=== PATIENT | female | born 1990 | race Caucasian/White ===

== ENCOUNTER 2016-05-08 10:10 | Emergency (ER) | payer MEDICAID ==
[~2016-05-08] VITALS: Ht 154.9 cm; Wt 63.5 kg
[2016-05-08 10:46] VITALS: BP 101/65
[2016-05-08] MEDS ORDERED: MOTRIN600 MG PO (10:46)
--- NOTE | 2016-05-08 11:10 | NUR ---
Patient ambulated to bed 08.
--- NOTE | 2016-05-08 11:13 | NUR ---
Dr. Browning evaluating patient at bedside.
--- NOTE | 2016-05-08 11:17 | NUR ---
PATIENT PRESENTS TO ED WITH COUGHING /SORE THROAT X3 DAYS. HX BRONCHITIS, ASTHMA. DENIES N/V/D; SKIN IS PINK/WARM/DRY; AAOX4 WITH EVEN AND STEADY GAIT; LUNGS CLEAR BL; HR EVEN AND REGULAR; PT DENIES ANY FEVER, CP AT THIS TIME; PATIENT STATES PAIN OF 5/10 AT THIS TIME; VSS; PATIENT POSITIONED FOR COMFORT; HOB ELEVATED; BEDRAILS UP X2; BED DOWN. ER MD MADE AWARE OF PT STATUS.
[2016-05-08 11:20] VITALS: BP 101/65
--- NOTE | 2016-05-08 11:20 | NUR ---
Patient discharged with v/s stable. Written and verbal after care instructions given and explained. Patient alert, oriented and verbalized understanding of instructions. Ambulatory with steady gait. All questions addressed prior to discharge. ID band removed. Patient advised to follow up with PMD. Rx of KEFLEX, PROMETHAZINE given. Patient educated on indication of medication including possible reaction and side effects. Opportunity to ask questions provided and answered.
== END 2016-05-08 11:20 | disposition home or self-care (01) ==
LOC: MED 10:10
DX: J06.9 Acute upper respiratory infection, unspecified (principal); J45.909 Unspecified asthma, uncomplicated

== ENCOUNTER 2016-12-27 09:08 | Emergency (ER) | payer SELFPAY ==
[~2016-12-27] VITALS: Ht 154.9 cm; Wt 50.8 kg
[~2016-12-27 09:08] MED LIST: MOTRIN600 MG PO
[2016-12-27 09:20] VITALS: BP 157/76
--- NOTE | 2016-12-27 09:28 | NUR ---
Patient ambulated to bed 05.
--- NOTE | 2016-12-27 09:31 | NUR ---
26F BIB MOTHER C/O MID-ABDOMINAL CRAMPING, NON-RADIATING, 5/10 X YESTERDAY; ABDOMEN SOFT, NON-TENDER, ACTIVE BOWEL SOUNDS X 4 QUADRANTS; PT STATES NO N/V/D AT THIS TIME; PT C/O VAGINAL BLEEDING X YESTERDAY WITH CLOTTS; PT STATES USING 2 TAMPONS/DAY AT THIS TIME; PT AA&OX4, PERRLA, BL LUNG SOUNDS CLEAR, RR EVEN/UNLABORED, SKIN IS WARM/DRY/INTACT AT THIS TIME; STEADY GAIT; PT RESTING IN BED WITH HOB ELEVATED AND IN LOWEST POSITION; POSITIONED FOR COMFORT; ER MD MADE AWARE OF STATUS. WILL CONTINUE TO MONITOR.
--- NOTE | 2016-12-27 09:32 | NUR ---
Dr. Browning evaluating patient at bedside.
--- NOTE | 2016-12-27 09:51 | NUR ---
US AT BEDSIDE.
[2016-12-27 11:15] VITALS: BP 106/64
--- NOTE | 2016-12-27 11:15 | NUR ---
Patient discharged with v/s stable. Written and verbal after care instructions given and explained. Patient alert, oriented and verbalized understanding of instructions. Ambulatory with steady gait. All questions addressed prior to discharge. ID band removed. Patient advised to follow up with PMD. Rx of TRAMADOL HYDROCHLORIDE 50MG TAB given. Patient educated on indication of medication including possible reaction and side effects. Opportunity to ask questions provided and answered.
== END 2016-12-27 11:15 | disposition home or self-care (01) ==
LOC: MED 09:08
DX: N93.9 Abnormal uterine and vaginal bleeding, unspecified (principal)
CPT/HCPCS: 36415; 76830; 81001; 81025; 85025; 99285; Q0092

== ENCOUNTER 2017-09-30 11:10 | Emergency (ER) | payer SELFPAY ==
[~2017-09-30] VITALS: Ht 157.5 cm; Wt 45.4 kg
[~2017-09-30 11:10] MED LIST changes: +IBUP-2213 PO; -MOTRIN600 MG PO
[2017-09-30 11:22] VITALS: BP 110/69
--- NOTE | 2017-09-30 12:25 | NUR ---
PT AMBULATES TO BED 5
--- NOTE | 2017-09-30 12:35 | NUR ---
PATIENT PRESENTS TO ED WITH COMPLAINTS OF N/V/D X 1 DAY. PATIENT STATES WHEN SHE STANDS UP IT GETS WORSE. AAOX4 WITH EVEN AND STEADY GAIT; LUNGS CLEAR BL; HR EVEN AND REGULAR; PT DENIES ANY FEVER, CP, SOB, OR COUGH AT THIS TIME; PATIENT STATES PAIN OF 9/10 AT THIS TIME; VSS; PATIENT POSITIONED FOR COMFORT; HOB ELEVATED; BEDRAILS UP X1; BED DOWN. ER MD MADE AWARE OF PT STATUS.
[2017-09-30] MEDS ORDERED: NACL 0.9% 1,000 ML IV SCH (14:05)
[2017-09-30] MEDS ORDERED: ONDANSETRON 4 MG/2 ML VIAL IVP ONE (14:05)
--- NOTE | 2017-09-30 14:30 | NUR ---
Patient appears to be resting comfortably in bed. Vital Signs within normal limits. Respirations even and unlabored. PATIENT NOT SEEN YET BY MD.
[2017-09-30 14:51] LABS: BASOPHILS % (AUTO) 0.3 % (0.0-2.0); EOSINOPHILS % (AUTO) 0.4 % (0.0-4.0); HEMATOCRIT 43.7 % (36-48); HEMOGLOBIN 14.4 g/dL (12.0-16.0); LYMPHOCYTES # (AUTO) 1.1 K/uL (2.5-16.5); MEAN CORPUSCULAR HEMOGLOBIN 33 pg (27-31); MEAN CORPUSCULAR HGB CONC 33 g/dL (33-37); MEAN CORPUSCULAR VOLUME 98.7 fL (80-94); MONOCYTES # (AUTO) 0.3 K/uL (0.8-1.0); MONOCYTES % (AUTO) 4.5 % (1.7-9.3); NEUTROPHILS # (AUTO) 6.1 K/uL (1.8-7.7); NEUTROPHILS % (AUTO) 80.8 % (42.2-75.2); PLATELET COUNT (AUTO) 206 K/uL (140-450); RED BLOOD CELL COUNT(AUTO) 4.43 MIL/uL (4.20-5.40); WHITE BLOOD COUNT (AUTO) 7.5 K/uL (4.8-10.8)
[2017-09-30 14:56] LABS: BILIRUBIN,URINE NEGATIVE (NEGATIVE); BLOOD, URINE 1+ (NEGATIVE); COLOR,URINE YELLOW (YELLOW); LEUKOCYTE ESTERASE ,URINE NEGATIVE (NEGATIVE); NITRITE, URINE NEGATIVE (NEGATIVE); UGLUCOSE NEGATIVE (NEGATIVE)
[2017-09-30 14:57] LABS: APPEARANCE,URINE HAZY (CLEAR)
[2017-09-30 15:00] LABS: ANION GAP 10.7 (8-16); CARBON DIOXIDE 29.1 mmol/L (21-32); CREATININE 0.7 mg/dL (0.6-1.3); POTASSIUM 3.8 mmol/L (3.5-5.1)
[2017-09-30 15:08] LABS: TOTAL BILIRUBIN 1.1 mg/dL (0.0-1.0)
[2017-09-30 15:14] LABS: RBC,URINE 3-10 (FEW) /HPF (0-5); WBC,URINE 0-5 (RARE) /HPF (0-5)
[2017-09-30] MEDS ORDERED: FAMOTIDINE 20 MG/2 ML VIAL IV SCH (15:50)
--- NOTE | 2017-09-30 16:30 | NUR ---
Patient appears to be resting comfortably in bed. Vital Signs within normal limits. Respirations even and unlabored.
[2017-09-30 17:30] VITALS: BP 145/90
--- NOTE | 2017-09-30 17:30 | NUR ---
Patient discharged with v/s stable. Written and verbal after care instructions given and explained. Patient alert, oriented and verbalized understanding of instructions. Ambulatory with steady gait. All questions addressed prior to discharge. ID band removed. Patient advised to follow up with PMD. Rx of ROBITUSSIN, ZOFRAN, PEPCID given. Patient educated on indication of medication including possible reaction and side effects. Opportunity to ask questions provided and answered.
== END 2017-09-30 17:30 | disposition home or self-care (01) ==
LOC: MED 11:10
DX: T62.8X1A Toxic effect of other specified noxious substances eaten as food, accidental (unintentional), initial encounter (principal); J45.909 Unspecified asthma, uncomplicated; Y92.89 Other specified places as the place of occurrence of the external cause
CPT/HCPCS: 36415; 80053; 81001; 81025; 83690; 84703; 85025; 96361; 96374; 99284; J2405; J7030

== ENCOUNTER 2020-02-24 17:29 | Emergency (ER) | payer MEDICAID ==
[~2020-02-24] VITALS: Ht 154.9 cm; Wt 49.9 kg
[2020-02-24 18:21] VITALS: BP 110/59
--- NOTE | 2020-02-24 18:43 | NUR ---
C/O COUGH, SORE THROAT, WYATT 5/10 X 3 DAYS. PT HAD COVID TESTED 1 MONTH AGO: NEGATIVE. MED HX: ASTHMA
--- NOTE | 2020-02-24 19:00 | NUR ---
COVID SWAB DONE.
--- NOTE | 2020-02-24 19:21 | NUR ---
Patient discharged with v/s stable. Written and verbal after care instructions given and explained. Patient alert, oriented and verbalized understanding of instructions. Ambulatory with steady gait. All questions addressed prior to discharge. ID band removed. Patient advised to follow up with PMD. Rx of IBUPROFEN, PROMETHAZINE& LORATADINE given. Patient educated on indication of medication including possible reaction and side effects. Opportunity to ask questions provided and answered.
[2020-02-24 19:22] VITALS: BP 110/59
== END 2020-02-24 19:21 | disposition home or self-care (01) ==
LOC: MED 17:29
DX: B34.9 Viral infection, unspecified (principal); J45.909 Unspecified asthma, uncomplicated; Z79.899 Other long term (current) drug therapy; Z20.828 Contact with and (suspected) exposure to other viral communicable diseases
CPT/HCPCS: 99283; U0003

== ENCOUNTER 2020-07-12 11:36 | Emergency (ER) | payer MEDICAID ==
[~2020-07-12] VITALS: Ht 154.9 cm; Wt 49.9 kg
[2020-07-12 11:49] VITALS: BP 105/60
[2020-07-12] MEDS ORDERED: IPRATROPIUM 0.02% 0.5 MG/2.5 ML NEBU INH ONE (12:05)
[2020-07-12] MEDS ORDERED: ALBUTEROL 0.083% 2.5 MG/3 ML NEBU INH ONE (12:05)
[2020-07-12] MEDS ORDERED: predniSONE 20 MG TAB PO ONE (12:05)
[2020-07-12] MEDS ORDERED: PRED20TA5 PO (12:58)
[2020-07-12] MEDS ORDERED: ALBU0.0912 IH (12:58)
[2020-07-12 13:12] VITALS: BP 105/60
== END 2020-07-12 13:11 | disposition home or self-care (01) ==
LOC: MED 11:36
DX: B34.9 Viral infection, unspecified (principal); Z20.822 Contact with and (suspected) exposure to COVID-19; J45.909 Unspecified asthma, uncomplicated; Z79.899 Other long term (current) drug therapy; Z98.890 Other specified postprocedural states
CPT/HCPCS: 94640; 99283; J7512; J7613; J7644; U0003

== ENCOUNTER 2020-11-19 13:17 | Emergency (ER) | payer MEDICAID, OTHER ==
[~2020-11-19] VITALS: Ht 157.5 cm; Wt 47.6 kg
[~2020-11-19 13:17] MED LIST changes: +ALBU0.0912 IH; +PRED20TA5 PO
[2020-11-19 13:22] VITALS: BP 101/77
--- NOTE | 2020-11-19 13:35 | NUR ---
Pt bib self c/o 30 yo f c/o headache x 1 week, weakness and loss of appetite x 2 days. as per pt, she had anemia and was taking iron supplements but stopped taking these 3 months ago. took ibuprofen last night. PT DENIES N/V/D; SKIN IS INTACT, Pale/cool/DRY; AAOX4, PERRL, WITH EVEN AND STEADY GAIT; LUNGS CLEAR BL, BREATHING UNLABORED; HR EVEN AND REGULAR, BL PERIPHERAL PULSES PRESENT; BS ACTIVE X4, NO TENDERNESS TO PALPATION. PT DENIES ANY FEVER, CP, SOB, OR COUGH AT THIS TIME; PT STATES 0/10 PAIN AT THIS TIME; VSS; PATIENT POSITIONED FOR COMFORT; HOB ELEVATED; BEDRAILS UP X2; BED DOWN.
--- NOTE | 2020-11-19 13:36 | NUR ---
UA DONE, HCG NEG. PT AWITING ER MD BLAKELY
[2020-11-19 13:50] LABS: BASOPHILS # (AUTO) 0.1 K/uL (0.00-0.22); BASOPHILS % (AUTO) 0.9 % (0.0-2.0); EOSINOPHILS # (AUTO) 0.2 K/uL (0-0.4); EOSINOPHILS % (AUTO) 2.3 % (0.0-4.0); HEMATOCRIT 40.6 % (36-48); HEMOGLOBIN 13.7 g/dL (12.0-16.0); LYMPHOCYTES # (AUTO) 2.5 K/uL (2.5-16.5); LYMPHOCYTES % (AUTO) 34.6 % (20.5-51.1); MEAN CORPUSCULAR HEMOGLOBIN 34 pg (27-31); MEAN CORPUSCULAR HGB CONC 34 g/dL (33-37); MEAN CORPUSCULAR VOLUME 100.2 fL (80-94); MONOCYTES # (AUTO) 0.3 K/uL (0.8-1.0); MONOCYTES % (AUTO) 4.6 % (1.7-9.3); NEUTROPHILS # (AUTO) 4.1 K/uL (1.8-7.7); NEUTROPHILS % (AUTO) 57.6 % (42.2-75.2); PLATELET COUNT (AUTO) 219 K/uL (140-450); RED BLOOD CELL COUNT(AUTO) 4.05 MIL/uL (4.20-5.40); RED CELL DISTRIBUTION WIDTH 13.5 % (11.6-13.7); WHITE BLOOD COUNT (AUTO) 7.1 K/uL (4.8-10.8)
[2020-11-19 13:54] LABS: ANION GAP 9.6 (8-16); CARBON DIOXIDE 29.4 mmol/L (21-32); CREATININE 0.7 mg/dL (0.6-1.3)
[2020-11-19] MEDS: KETOROLAC 60 MG/2 ML VIAL IM ONE (13:56)
--- NOTE | 2020-11-19 13:57 | NUR ---
IM MEDS GIVEN-NADR AT THIS TIME
--- NOTE | 2020-11-19 14:06 | NUR ---
pt provided with warm blanket
--- NOTE | 2020-11-19 14:19 | NUR ---
er at bedside
[2020-11-19] MEDS ORDERED: IBUP-2213 PO (14:32)
[2020-11-19] MEDS ORDERED: ACET-8386 PO (14:32)
[2020-11-19 14:39] VITALS: BP 101/77
--- NOTE | 2020-11-19 14:39 | NUR ---
Patient discharged with v/s stable. Written and verbal after care instructions about general headache without cause and weakness given and explained. Patient alert, oriented and verbalized understanding of instructions. Ambulatory with steady gait. All questions addressed prior to discharge. ID band removed. Patient advised to follow up with PMD. Rx of hydrocodon-acetaminophen and ibuprofen given. Patient educated on indication of medication including possible reaction and side effects. Opportunity to ask questions provided and answered.
== END 2020-11-19 14:39 | disposition home or self-care (01) ==
LOC: MED 13:17
DX: R51.9 Headache, unspecified (principal); R42 Dizziness and giddiness; J45.909 Unspecified asthma, uncomplicated
CPT/HCPCS: 36415; 80048; 81002; 81025; 85025; 96372; 99283; J1885

== ENCOUNTER 2021-01-24 12:35 | Emergency (ER) | payer OTHER ==
[~2021-01-24] VITALS: Ht 188 cm; Wt 49.9 kg
[~2021-01-24 12:35] MED LIST changes: +ACET-8386 PO
[2021-01-24 12:43] VITALS: BP 100/61
--- NOTE | 2021-01-24 12:50 | NUR ---
PT AMB TO BED 10.
--- NOTE | 2021-01-24 13:02 | NUR ---
PER ERMD 12 LEAD WAS DONE ON PT AND CAME BACK NSR AT 68 HR.
--- NOTE | 2021-01-24 13:11 | NUR ---
30/F BIB SELF WITH C/O "PRESSURE" LIKE 6/10 CHEST PAIN FOR ONE MONTH. PATIENT DENIES ANY RECENT INJURY OR TRAUMA, STATES CHEST IS TENDER TO TOUCH. REPORTS TAKING IBUPROFEN AT HOME WITH NO RELIEF, MAIRA SOB, FEVER, CHILLS, N/V/D.
--- NOTE | 2021-01-24 13:13 | NUR ---
PATIENT TAKEN TO XRAY BY WHEEL CHAIR.
--- NOTE | 2021-01-24 13:17 | NUR ---
PATIENT RETURNED FROM XRAY
[2021-01-24] MEDS ORDERED: IBUP-2213 PO (13:52)
[2021-01-24] MEDS: KETOROLAC 30 MG/ML VIAL IM ONE (14:02)
[2021-01-24 14:21] VITALS: BP 111/62
--- NOTE | 2021-01-24 14:26 | NUR ---
Patient discharged with v/s stable. Written and verbal after care instructions given and explained. Patient alert, oriented and verbalized understanding of instructions. Ambulatory with steady gait. All questions addressed prior to discharge. ID band removed. Patient advised to follow up with PMD. Rx of IBU given. Patient educated on indication of medication including possible reaction and side effects. Opportunity to ask questions provided and answered.
== END 2021-01-24 14:26 | disposition home or self-care (01) ==
LOC: MED 12:35
DX: R07.89 Other chest pain (principal); J45.909 Unspecified asthma, uncomplicated; Z79.899 Other long term (current) drug therapy; Z79.1 Long term (current) use of non-steroidal anti-inflammatories (NSAID); Z79.891 Long term (current) use of opiate analgesic; Z79.51 Long term (current) use of inhaled steroids
CPT/HCPCS: 71046; 93005; 96372; 99283; J1885

== ENCOUNTER 2021-02-12 13:45 | Emergency (ER) | payer OTHER ==
[~2021-02-12] VITALS: Ht 157.5 cm; Wt 49.9 kg
[2021-02-12 13:50] VITALS: BP 114/70
[2021-02-12 15:25] LABS: APPEARANCE,URINE CLEAR (CLEAR); BILIRUBIN,URINE NEGATIVE (NEGATIVE); BLOOD, URINE 1+ (NEGATIVE); COLOR,URINE YELLOW (YELLOW); LEUKOCYTE ESTERASE ,URINE NEGATIVE (NEGATIVE); NITRITE, URINE NEGATIVE (NEGATIVE); UGLUCOSE NEGATIVE (NEGATIVE)
[2021-02-12 15:29] LABS: RBC,URINE 11-20 (MOD) /HPF (0-5); WBC,URINE 0-5 /HPF (0-5)
[2021-02-12] MEDS ORDERED: KETOROLAC 30 MG/ML VIAL IM ONE (15:45)
[2021-02-12] MEDS ORDERED: DOXYCYCLINE 100 MG CAP PO STA (15:57)
[2021-02-12] MEDS ORDERED: metroNIDAZOLE 500 MG TAB PO ONE (16:00)
[2021-02-12] MEDS ORDERED: cefTRIAXone 500 MG VIAL IM ONE (16:00)
[2021-02-12] MEDS ORDERED: DOXY-690 PO (16:24)
[2021-02-12] MEDS ORDERED: metroNIDAZOLE 500 MG TAB ONE (16:50)
[2021-02-12] MEDS ORDERED: KETOROLAC 30 MG/ML VIAL ONE (16:51)
[2021-02-12] MEDS ORDERED: cefTRIAXone 500 MG in LIDOCAINE MPF 1% 1 ML IM ONE (16:55)
[2021-02-12] MEDS ORDERED: cefTRIAXone 500 MG VIAL ONE (17:00)
[2021-02-12] MEDS ORDERED: LIDOCAINE MPF 1% 5 ML ONE (17:00)
[2021-02-12 17:28] VITALS: BP 117/69
== END 2021-02-12 17:28 | disposition home or self-care (01) ==
LOC: MED 13:45
DX: R10.2 Pelvic and perineal pain (principal); J45.909 Unspecified asthma, uncomplicated; F17.210 Nicotine dependence, cigarettes, uncomplicated; Z79.2 Long term (current) use of antibiotics; Z79.1 Long term (current) use of non-steroidal anti-inflammatories (NSAID); Z79.891 Long term (current) use of opiate analgesic; Z79.899 Other long term (current) drug therapy; Z79.51 Long term (current) use of inhaled steroids
CPT/HCPCS: 81001; 81025; 87110; 87210; 87299; 96372; 99284; J0696; J1885; J2001

== ENCOUNTER 2021-03-20 00:52 | Emergency (ER) | payer OTHER ==
[~2021-03-20] VITALS: Ht 157.5 cm; Wt 49.9 kg
[~2021-03-20 00:52] MED LIST changes: +DOXY-690 PO
[2021-03-20 01:35] VITALS: BP 115/42
--- NOTE | 2021-03-20 01:38 | NUR ---
TO LOBBY A/W BED AMBULATORY
--- NOTE | 2021-03-20 03:00 | NUR ---
RECEIVED IN BED 8 WITH C/O SORETHROAT, BODYACHES, H/A. ABD PAIN WHICH STARTED YESTERDAY
--- NOTE | 2021-03-20 03:27 | NUR ---
Dr. Tapia examining patient.
--- NOTE | 2021-03-20 03:35 | NUR ---
SWAB FOR NOVEL SENT TO LAB
--- NOTE | 2021-03-20 05:00 | NUR ---
UA TO LAB
[2021-03-20 05:24] LABS: APPEARANCE,URINE CLEAR (CLEAR); BILIRUBIN,URINE NEGATIVE (NEGATIVE); BLOOD, URINE 1+ (NEGATIVE); COLOR,URINE YELLOW (YELLOW); LEUKOCYTE ESTERASE ,URINE NEGATIVE (NEGATIVE); NITRITE, URINE NEGATIVE (NEGATIVE); PH,URINE 5.5 (5.0-9.0); UGLUCOSE NEGATIVE (NEGATIVE)
[2021-03-20 05:39] LABS: RBC,URINE 0-5 /HPF (0-5); WBC,URINE 0-5 /HPF (0-5)
[2021-03-20 06:04] VITALS: BP 115/42
--- NOTE | 2021-03-20 06:04 | NUR ---
Patient discharged with v/s stable. Written and verbal after care instructions given and explained. Patient verbalized understanding. Ambulatory with steady gait. All questions addressed prior to discharge. Advised to follow up with PMD.
== END 2021-03-20 06:04 | disposition home or self-care (01) ==
LOC: MED 00:52
DX: B34.9 Viral infection, unspecified (principal); J45.909 Unspecified asthma, uncomplicated
CPT/HCPCS: 81001; 81025; 99283; U0003

== ENCOUNTER 2021-05-07 11:16 | Emergency (ER) | payer OTHER ==
[~2021-05-07] VITALS: Ht 152.4 cm; Wt 49.9 kg
[2021-05-07 11:21] VITALS: BP 106/74
[2021-05-07] MEDS ORDERED: ONDA-188 SL (12:49)
[2021-05-07] MEDS ORDERED: ONDANSETRON 4 MG ODT PO ONE (12:50)
--- NOTE | 2021-05-07 13:20 | NUR ---
called pt, no answer in lobby or outside
--- NOTE | 2021-05-07 13:30 | NUR ---
called pt, no answer in lobby or outside left without medication and paperwork at this time
[2021-05-07 13:32] VITALS: BP 106/74
--- NOTE | 2021-05-07 13:35 | NUR ---
pt up for discharge Dr Hernández, pt left without medication and discharge paperwork. rx of zofran was sent electronically to pts pharmacy
== END 2021-05-07 13:35 | disposition home or self-care (01) ==
LOC: MED 11:16
DX: R11.2 Nausea with vomiting, unspecified (principal); R53.1 Weakness; J45.909 Unspecified asthma, uncomplicated; Z79.899 Other long term (current) drug therapy
CPT/HCPCS: 99283

== ENCOUNTER 2022-01-10 08:20 | Emergency (ER) | payer OTHER ==
[~2022-01-10] VITALS: Ht 157.5 cm; Wt 52.6 kg
[~2022-01-10 08:20] MED LIST changes: +ONDA-188 SL
[2022-01-10 08:34] VITALS: BP 125/65
--- NOTE | 2022-01-10 09:03 | NUR ---
31 y/o female bib self with son, c/o cough, increased sob, and chest pain that comes and goes, started yesterday. pt states her urine has been having blood which she states is normal to baseline for current medical conditions. denies fever, chills, n/v/d. a&ox4, ambulates with steady gait. skin pink/warm/dry. lung wheezing bl, heart sounds even and reguar. ermd made aware of status. pmh: asthma, lupus nka med: qvar, albuterol
[2022-01-10] MEDS ORDERED: ALBUTEROL 0.083% 2.5 MG/3 ML NEBU INH ONE (09:05)
[2022-01-10] MEDS ORDERED: ALBUTEROL SULFATE/IPRATROPIU 3 ML SOL IH ONE (09:05)
--- NOTE | 2022-01-10 09:41 | NUR ---
pt states she still has mild sob after respiratory tx
--- NOTE | 2022-01-10 09:43 | NUR ---
@0904 ED CALLED FOR BREATHING TX. RT WAS UNAVAILABLE DUE TO INTUBATION IN ICU. RN GAVE BREATHING TX.
[2022-01-10] MEDS ORDERED: PRED50TA2 PO (11:51)
[2022-01-10 12:07] VITALS: BP 125/65
--- NOTE | 2022-01-10 12:07 | NUR ---
Patient discharged with v/s stable. Written and verbal after care instructions given and explained. Patient alert, oriented and verbalized understanding of instructions. Ambulatory with steady gait. All questions addressed prior to discharge. ID band removed. Patient advised to follow up with PMD. Rx of prednisone (sent) given. Patient educated on indication of medication including possible reaction and side effects. Opportunity to ask questions provided and answered.
== END 2022-01-10 12:07 | disposition home or self-care (01) ==
LOC: MED 08:20
DX: J45.901 Unspecified asthma with (acute) exacerbation (principal)
CPT/HCPCS: 81002; 81025; 94640; 99283; J7613

== ENCOUNTER 2022-01-23 21:20 | Emergency (ER) | payer OTHER ==
[~2022-01-23] VITALS: Ht 157.5 cm; Wt 49.4 kg
[~2022-01-23 21:20] MED LIST changes: +PRED50TA2 PO
[2022-01-23 23:07] VITALS: BP 137/77
[2022-01-23] MEDS ORDERED: NACL 0.9% 1,000 ML IV ONE (23:20)
[2022-01-23] MEDS ORDERED: KETOROLAC 30 MG/ML VIAL IVP ONE (23:20)
[2022-01-23 23:36] LABS: BASOPHILS # (AUTO) 0.1 K/uL (0.00-0.22); BASOPHILS % (AUTO) 0.9 % (0.0-2.0); EOSINOPHILS # (AUTO) 0.2 K/uL (0-0.4); EOSINOPHILS % (AUTO) 1.6 % (0.0-4.0); HEMATOCRIT 41.7 % (36-48); HEMOGLOBIN 14.1 g/dL (12.0-16.0); LYMPHOCYTES # (AUTO) 3.7 K/uL (2.5-16.5); LYMPHOCYTES % (AUTO) 37.4 % (20.5-51.1); MEAN CORPUSCULAR HEMOGLOBIN 33 pg (27-31); MEAN CORPUSCULAR HGB CONC 34 g/dL (33-37); MEAN CORPUSCULAR VOLUME 96.3 fL (80-94); MONOCYTES # (AUTO) 0.6 K/uL (0.8-1.0); MONOCYTES % (AUTO) 6.3 % (1.7-9.3); NEUTROPHILS # (AUTO) 5.3 K/uL (1.8-7.7); NEUTROPHILS % (AUTO) 53.8 % (42.2-75.2); PLATELET COUNT (AUTO) 277 K/uL (140-450); RED BLOOD CELL COUNT(AUTO) 4.32 MIL/uL (4.20-5.40); RED CELL DISTRIBUTION WIDTH 13.4 % (11.6-13.7); WHITE BLOOD COUNT (AUTO) 9.8 K/uL (4.8-10.8)
--- NOTE | 2022-01-23 23:41 | NUR ---
PT TO BED 5
[2022-01-23 23:57] LABS: ALBUMIN 4.7 g/dL (3.4-5.0); ANION GAP 17.8 (8-16); CARBON DIOXIDE 22.6 mmol/L (21-32); CREATININE 0.7 mg/dL (0.6-1.3); POTASSIUM 3.4 mmol/L (3.5-5.1)
--- NOTE | 2022-01-24 00:09 | NUR ---
31/F BIB SELF C/C 01/02 CRAMPING RLQ PAIN RAD TO RIGHT LOWER BACK . +N/V +ABD PAIN +LACK OF APPETITE. PATIENT APPEARS TO BE GUARDING ABD. PATIENT STATED THAT ABOUT A MONTH AGO SHE GOT DX WITH KIDNEY STONES AND HAS BEEN SEEING A RN ANESTHETIST. CURRENTLY HASNT RECEIVED TX. STATED SHE TOOK NAPROXEN YESTERDAY MORNING WITH MILD RELIEF. PATIENT STATED THAT SHE IS ALSO SEEING AN OB BECAUSE SHE HAS BEEN SPOTTING ON AND OFF ALL MONTH. PATIENT AAOX4 AND AMBULATORY. PMHX LUPUS, KIDNEY STONES, ASTHMA, ANXIETY NKA
[2022-01-24 00:39] VITALS: BP 117/82
--- NOTE | 2022-01-24 00:39 | NUR ---
Chart checked and completed.
== END 2022-01-24 00:39 | disposition home or self-care (01) ==
LOC: MED 21:20
DX: R10.9 Unspecified abdominal pain (principal); J45.909 Unspecified asthma, uncomplicated
CPT/HCPCS: 36415; 74176; 80053; 81002; 81025; 85025; 96361; 96374; 99284; J1885; J7030

== ENCOUNTER 2023-10-24 13:15 | Emergency (ER) | payer OTHER ==
[~2023-10-24] VITALS: Ht 157.5 cm; Wt 55.3 kg
[~2023-10-24 13:15] MED LIST changes: -ACET-8386 PO; +ACET-8905 PO
[2023-10-24] MEDS ORDERED: MORPHINE SULFATE 2 MG/ML SYR IVP STA (13:16)
[2023-10-24 13:26] VITALS: BP 117/34; PULSE 59; RESP 18; TEMP 98.1; O2SAT 98
[2023-10-24] MEDS: ACETAMINOPHEN EXTRA STRENGTH 500 MG TAB PO ONE (13:46)
[2023-10-24] MEDS: IBUPROFEN 600 MG TAB PO ONE (13:46)
[2023-10-24] MEDS ORDERED: IBUP-2213 PO (14:25)
[2023-10-24] MEDS ORDERED: ACET-10509 PO (14:25)
[2023-10-24 15:09] VITALS: BP 117/34; PULSE 59; RESP 18; TEMP 98.1; O2SAT 98
== END 2023-10-24 15:10 | disposition home or self-care (01) ==
LOC: MED 13:15
DX: M25.572 Pain in left ankle and joints of left foot (principal); J45.909 Unspecified asthma, uncomplicated; Z79.1 Long term (current) use of non-steroidal anti-inflammatories (NSAID); Z79.2 Long term (current) use of antibiotics; Z79.899 Other long term (current) drug therapy
CPT/HCPCS: 29515; 73610; 99283; Q0092